=== PATIENT | male | born 1960 | race Caucasian/White ===

== ENCOUNTER → 2019-04-26 11:09 | Outpatient (CLI) | payer MEDICARE, MEDICAID, SELFPAY ==
--- NOTE | 2019-04-26 11:15 | XR_ITS ---
PROCEDURE: XR CHEST 2V CLINICAL HISTORY: x Left-sided chest pain COMPARISON: [id number] XR chest portable from 06/17/2018 TECHNIQUE: FINDINGS: Cardiac pacemaker device remains present. Biventricular pacemaker with 2 right ventricular leads noted. Unremarkable cardiomediastinal structures. Lungs are clear. Degenerative changes are present in the thoracic spine. IMPRESSION: Pacemaker remains present. No change with no acute finding Dictated by: Demetrius Lopez MD 04/26/2019 16:43 Signed by: <Electronically signed by Demetrius Lopez MD in [place]> 04/26/2019 16:43
== END ==
PROVIDERS: PCP Family Medicine; Visit Provider Urology
DX: R06.00 Dyspnea, unspecified (principal)
CPT/HCPCS: 71046